=== PATIENT | female | born 1965 | race Caucasian/White ===

== ENCOUNTER 2019-03-26 20:40 | Emergency (ER) | payer SELFPAY ==
[~2019-03-26] VITALS: Ht 154.9 cm; Wt 63.0 kg
[2019-03-26 20:44] VITALS: Ht 154.9 cm; Wt 63.0 kg
[2019-03-27] MEDS ORDERED: AZIT250T PO (01:16)
[2019-03-27] MEDS ORDERED: D-ME473S2 PO (01:16)
[2019-03-27] MEDS ORDERED: ALBU8.5H8 INH (01:16)
[2019-03-27 01:23] VITALS: BP 121/78; PULSE 108; RESP 18
--- NOTE | 2019-03-27 01:32 | ERD ---
ER Documentation Chief Complaint Chief Complaint SORE THROAT X 3 WEEKS HPI This is a Montenegrin-speaking 53-year-old female presents to the ED complaining of productive cough, sore throat and subjective fevers x3 weeks. Patient states her cough has been getting progressively worse. She states she also feels short of breath at times. Denies any chest pain. Denies any runny nose. Denies any other symptoms. No sick contacts. No other complaints. ROS All systems reviewed and are negative except as per history of present illness. Medications Home Meds Active Scripts Albuterol Sulfate* (Proair HFA*) 8.5 Gm Hfa.aer.ad, 2 PUFF INH Q4H PRN for WHEEZING AND SOB, #1 INHALER Prov:PASTORAIGRIKIANTESSA-C 03/27/19 Dextromethorphan Hb-Promethazine Hcl* (Promethazine DM* Syrup) 473 Ml Syrup, 5 ML PO Q6 PRN for COUGH for 7 Days, ML Prov:PASTORAIGRTESSA WHTIEHEADC 03/27/19 Azithromycin* (Zithromax*) 250 Mg Tablet, 250 MG PO .ZPACK DIRECTED, #6 TAB TAKE 500 MG (2 TABS) THE FIRST DAY THEN 250 MG (1 TAB) DAYS 2-5 Prov:PASTORAIGRIKITESSA SMALLWOODC 03/27/19 PMhx/Soc Medical and Surgical Hx: pt denies Medical Hx, pt denies Surgical Hx Hx Alcohol Use: No Hx Substance Use: No Hx Tobacco Use: No Smoking Status: Never smoker Physical Exam Vitals Vital Signs Date Temp Pulse Resp B/P (MAP) Pulse Ox O2 O2 Flow FiO2 Time Delivery Rate 03/27/19 97.9 108 18 121/78 99 Room Air 01:23 (92) 03/26/19 97.4 105 20 118/76 98 20:44 (90) Physical Exam Const: No acute distress Head: Atraumatic Eyes: Normal Conjunctiva ENT: Normal External Ears, Nose and Mouth. + Posterior OP mildly erythematous. No tonsillar edema or exudates. He with a midline. Neck: Full range of motion. No meningismus. Resp: Clear to auscultation bilaterally. No wheezing, rhonchi, rales. Good air movement. No respiratory distress. Cardio: Regular rate and rhythm, no murmurs Ext: No cyanosis, or edema Neur: Awake and alert Psych: Normal Mood and Affect Procedures/MDM LABS & DIAGNOSTIC IMAGING: PROCEDURE: XR Chest. CLINICAL INDICATION: Cough for 3 weeks. TECHNIQUE: PA and Lateral views of the chest were obtained. COMPARISON: None. FINDINGS: The cardiomediastinal silhouette is within normal limits. Reticular nodular pattern in the right mid lung and lung base may represent bronchiolitis. A CT examination the chest may be of further use. Otherwise, the lungs are clear. No signs of pleural fluid or pneumothorax are seen. Degenerate changes in the thoracic spine with right marginal osteophytes in the mid thoracic spine. Othe rwise, the osseous structures and soft tissues are unremarkable. IMPRESSION: 1. Reticular nodular pattern in the right mid lung and lung base may represent bronchiolitis. 2. A CT examination the chest may be of further use. PROCEDURES: 12-lead EKG interpretation as interpeted by Dr. Tan Peterson Normal Sinus Rhythm with ventricular rate of [] beats per minute Normal axis Prolonged QT interval No acute ST or T wave changes suggestive of acute ischemia or STEMI. MEDICAL DECISION MAKIN-year-old healthy Montenegrin-speaking female presents with productive cough x3 weeks. She has no hypoxia here. No fever. Lung sounds are clear on physical exam. Chest x-ray was obtained and notable for likely bronchitis versus bronchiolitis. Given duration of symptoms, will treat for acute bronchitis with oral antibiotics. Patient also given supportive medications as well. I have low suspicion for any other emergent cardiac or pulmonary process. I have low suspicion for PE/DVT. Patient discharged home with strict return precautions. PRESCRIPTIONS: Azithromycin, Promethazine DM, pro-air SPECIALIST FOLLOW UP RECOMMENDED: None Patient has been advised to follow up with primary care in 1-2 days. Departure Diagnosis: Primary Impression: Bronchitis Condition: Stable Patient Instructions: Bronchitis, Antiobiotic Treatment (Adult) Referrals: COMMUNITY CLINICS YOU HAVE RECEIVED A MEDICAL SCREENING EXAM AND THE RESULTS INDICATE THAT YOU DO NOT HAVE A CONDITION THAT REQUIRES URGENT TREATMENT IN THE EMERGENCY DEPARTMENT. FURTHER EVALUATION AND TREATMENT OF YOUR CONDITION CAN WAIT UNTIL YOU ARE SEEN IN YOUR DOCTORS OFFICE WITHIN THE NEXT 1-2 DAYS. IT IS YOUR RESPONSIBILITY TO MAKE AN APPOINTMENT FOR FOLOW-UP CARE. IF YOU HAVE A PRIMARY DOCTOR --you should call your primary doctor and schedule an appointment IF YOU DO NOT HAVE A PRIMARY DOCTOR YOU CAN CALL OUR PHYSICIAN REFERRAL HOTLINE AT IF YOU CAN NOT AFFORD TO SEE A PHYSICIAN YOU CAN CHOSE FROM THE FOLLOWING [facility] [address] [facility] [address] [place] [facility] [address] [facility] [address] [facility] [address] [facility]. [facility] [address] [facility]. [facility] YOU HAVE RECEIVED A MEDICAL SCREENING EXAM AND THE RESULTS INDICATE THAT YOU DO NOT HAVE A CONDITION THAT REQUIRES URGENT TREATMENT IN THE EMERGENCY DEPARTMENT. FURTHER EVALUATION AND TREATMENT OF YOUR CONDITION CAN WAIT UNTIL YOU ARE SEEN IN YOUR DOCTORS OFFICE WITHIN THE NEXT 1-2 DAYS. IT IS YOUR RESPONSIBILITY TO MAKE AN APPOINTMENT FOR FOLOW-UP CARE. IF YOU HAVE A PRIMARY DOCTOR --you should call your primary doctor and schedule and appointment IF YOU DO NOT HAVE A PRIMARY DOCTOR YOU CAN CALL OUR PHYSICIAN REFERRAL HOTLINE AT . IF YOU CAN NOT AFFORD TO SEE A PHYSICIAN YOU CAN CHOSE FROM THE FOLLOWING [facility] INSTITUTIONS: [address] [place], [place] [id number] [place] [address] [address] [place] [address] Additional Instructions: Paciente aconseja volver a Departamento de urgencias inmediatamente para sntomas nuevos o que empeoran . Paciente aconseja posteriores con el PCP en 1-2 salinas. Si el paciente no tiene ninguna de atencin primaria pueden seguir con [place] [place] [id number] [place] [address] o [facility] [address] [place] [id number] TESSA THOMAS PA-C Mar 27, 2019 01:32
== END 2019-03-27 01:26 | disposition home or self-care (01) ==
LOC: FTE 20:40
DX: J40 Bronchitis, not specified as acute or chronic (principal); R06.02 Shortness of breath
CPT/HCPCS: 71046; 93005